=== PATIENT | female | born 1980 | race Two or more races ===

== ENCOUNTER 2022-05-20 09:33 | Outpatient (CLI) | payer BC | END 2022-05-20 23:59 | disposition home or self-care (01) | LOC: RAD 09:33 | PROVIDERS: ATTEND Family Medicine | DX: M75.81 Other shoulder lesions, right shoulder (principal); M25.531 Pain in right wrist; M25.521 Pain in right elbow; M25.511 Pain in right shoulder | CPT/HCPCS: 73030-TC; 73080-TC; 73110 ==

== ENCOUNTER 2025-08-14 10:32 | Outpatient (CLI) | payer BC | END 2025-08-14 23:59 | disposition home or self-care (01) | LOC: RAD 10:32 | PROVIDERS: ATTEND Family Medicine | DX: Z01.818 Encounter for other preprocedural examination (principal) | CPT/HCPCS: 71046 ==

== ENCOUNTER 2025-08-23 05:51 | Day surgery (SDC) | payer BC ==
[2025-08-23 07:04] LABS: PREGNANCY TEST URINE QUAL NEGATIVE (NEGATIVE)
[2025-08-23] MEDS ORDERED: ROCURONIUM BROMIDE 50 MG/5 ML ONE (07:23)
[2025-08-23] MEDS ORDERED: FENTANYL PF 100MCG/2ML AMPUL ONE (08:29)
[2025-08-23] MEDS ORDERED: LABETALOL HCL IV 100MG VIAL ONE (08:58)
[2025-08-23] MEDS ORDERED: oxyCODONE/APAP (5/325 MG) 1 UDTAB TABLET ONE (09:35)
== END 2025-08-23 10:41 | disposition home or self-care (01) ==
LOC: DS 05:51
PROVIDERS: ATTEND Student in an Organized Health Care Education/Training Program
DX: G56.01 Carpal tunnel syndrome, right upper limb (principal); Z79.899 Other long term (current) drug therapy; Z98.890 Other specified postprocedural states
CPT/HCPCS: 64721; 84703; A6402; J0461; J2704; J2765; J3010; J3490; J7030; J7050